=== PATIENT | female | born 1985 | race African-American/Black ===

== ENCOUNTER 2016-10-03 19:36 | Emergency (ER) | payer MEDICAID ==
[~2016-10-03] VITALS: Ht 162.6 cm; Wt 75.0 kg
[2016-10-04 02:16] LABS: CLARITY URINE CLEAR (CLEAR); COLOR URINE YELLOW (YELLOW); GLUCOSE URINE NEGATIVE (NEGATIVE); KETONES URINE NEGATIVE (NEGATIVE); LEUKOCYTE ESTERASE URINE NEGATIVE (NEGATIVE); NITRITE URINE NEGATIVE (NEGATIVE); OCCULT BLOOD URINE TRACE (NEGATIVE); PROTEIN URINE NEGATIVE (NEGATIVE); SPECIFIC GRAVITY URINE 1.015 (1.005-1.030); UROBILINOGEN URINE 0.2 E.U./dL (0.2-1.0)
[2016-10-04] MEDS ORDERED: PHENAZOPYRIDINE HCL 200MG TABLET PO ONE (03:15)
[2016-10-04 03:43] VITALS: BP 104/66
== END 2016-10-04 03:54 | disposition home or self-care (01) ==
LOC: ER 19:36
DX: N39.0 Urinary tract infection, site not specified (principal); F17.200 Nicotine dependence, unspecified, uncomplicated; Z98.890 Other specified postprocedural states
CPT/HCPCS: 81001; 81025; 99283

== ENCOUNTER 2016-11-22 11:09 | Emergency (ER) | payer MEDICAID, OTHER ==
[~2016-11-22] VITALS: Ht 162.6 cm; Wt 68.0 kg
[2016-11-22 14:53] VITALS: BP 123/78
[2016-11-22 15:05] LABS: CLARITY URINE CLEAR (CLEAR); COLOR URINE YELLOW (YELLOW); GLUCOSE URINE NEGATIVE (NEGATIVE); KETONES URINE 1+ (NEGATIVE); LEUKOCYTE ESTERASE URINE NEGATIVE (NEGATIVE); NITRITE URINE NEGATIVE (NEGATIVE); OCCULT BLOOD URINE 1+ (NEGATIVE); PH URINE 5.5 (4.5-8.0); PROTEIN URINE NEGATIVE (NEGATIVE); SPECIFIC GRAVITY URINE 1.017 (1.005-1.030); UROBILINOGEN URINE 0.2 E.U./dL (0.2-1.0)
== END 2016-11-22 16:05 | disposition left against medical advice (07) ==
LOC: ER 11:09
DX: R30.0 Dysuria (principal); R35.0 Frequency of micturition; Z98.890 Other specified postprocedural states
CPT/HCPCS: 81001; 81025; 99283

== ENCOUNTER 2017-03-14 08:18 | Emergency (ER) | payer MEDICAID, OTHER ==
[~2017-03-14] VITALS: Ht 162.6 cm; Wt 69.0 kg
[2017-03-14 08:28] VITALS: BP 114/72
[2017-03-14 09:48] LABS: CLARITY URINE CLEAR (CLEAR); COLOR URINE YELLOW (YELLOW); KETONES URINE NEGATIVE (NEGATIVE); LEUKOCYTE ESTERASE URINE NEGATIVE (NEGATIVE); NITRITE URINE NEGATIVE (NEGATIVE); OCCULT BLOOD URINE TRACE (NEGATIVE); PH URINE 6.5 (4.5-8.0); PROTEIN URINE NEGATIVE (NEGATIVE); SPECIFIC GRAVITY URINE 1.007 (1.005-1.030); UROBILINOGEN URINE 0.2 E.U./dL (0.2-1.0)
== END 2017-03-14 10:35 | disposition home or self-care (01) ==
LOC: ER 08:48
DX: N39.0 Urinary tract infection, site not specified (principal); F10.20 Alcohol dependence, uncomplicated
CPT/HCPCS: 81001; 81025; 87086; 99283; 99284

== ENCOUNTER 2018-01-23 09:19 | Emergency (ER) | payer MEDICAID ==
[~2018-01-23] VITALS: Ht 162.6 cm; Wt 70.0 kg
[2018-01-23 09:28] VITALS: BP 136/61
[2018-01-26 04:12] LABS: CHLAMYDIA TRACHOMATIS NAA Negative (Negative); NEISSERIA GONORRHOEAE NAA Negative (Negative)
== END 2018-01-23 12:40 | disposition home or self-care (01) ==
LOC: ER 09:59
DX: G89.29 Other chronic pain (principal); R10.32 Left lower quadrant pain; I10 Essential (primary) hypertension; F12.10 Cannabis abuse, uncomplicated; Z98.890 Other specified postprocedural states
CPT/HCPCS: 81025; 87210; 87491; 87591; 99283

== ENCOUNTER 2018-03-11 10:13 | Emergency (ER) | payer MEDICAID ==
[~2018-03-11] VITALS: Ht 162.6 cm; Wt 61.0 kg
[2018-03-11] MEDS ORDERED: KETOROLAC 30MG/ML VIAL IM ONE (11:45)
[2018-03-11 12:17] VITALS: BP 132/71
[2018-03-11 12:31] LABS: CLARITY URINE CLEAR (CLEAR); COLOR URINE YELLOW (YELLOW); KETONES URINE NEGATIVE (NEGATIVE); LEUKOCYTE ESTERASE URINE NEGATIVE (NEGATIVE); NITRITE URINE NEGATIVE (NEGATIVE); OCCULT BLOOD URINE NEGATIVE (NEGATIVE); PROTEIN URINE NEGATIVE (NEGATIVE); SPECIFIC GRAVITY URINE 1.014 (1.005-1.030); UROBILINOGEN URINE 0.2 E.U./dL (0.2-1.0)
== END 2018-03-11 13:54 | disposition home or self-care (01) ==
LOC: ER 10:13
DX: R10.2 Pelvic and perineal pain (principal); G89.29 Other chronic pain; I10 Essential (primary) hypertension; F12.10 Cannabis abuse, uncomplicated; Z98.890 Other specified postprocedural states
CPT/HCPCS: 81003; 81025; 87210; 87491; 87591; 96372; 99283; J1885

== ENCOUNTER 2022-07-12 20:57 | Emergency (ER) | payer MEDICAID, OTHER ==
[~2022-07-12] VITALS: Ht 162.6 cm; Wt 77.0 kg
[~2022-07-12 20:57] MED LIST: NITR100C MT
[2022-07-12 21:12] VITALS: BP 129/88
[2022-07-12] MEDS ORDERED: ACETAMINOPHEN 325MG TABLET PO STA (23:17)
[2022-07-12 23:53] LABS: CLARITY URINE CLEAR (CLEAR); COLOR URINE YELLOW (YELLOW); KETONES URINE TRACE (NEGATIVE); LEUKOCYTE ESTERASE URINE NEGATIVE (NEGATIVE); NITRITE URINE NEGATIVE (NEGATIVE); OCCULT BLOOD URINE NEGATIVE (NEGATIVE); PROTEIN URINE NEGATIVE (NEGATIVE); SPECIFIC GRAVITY URINE 1.014 (1.005-1.030)
[2022-07-13] MEDS ORDERED: NITR100C PO (00:28)
[2022-07-13] MEDS ORDERED: PYR200 MT (00:29)
== END 2022-07-13 01:25 | disposition home or self-care (01) ==
LOC: ER 20:57
DX: R30.0 Dysuria (principal); F12.90 Cannabis use, unspecified, uncomplicated; I10 Essential (primary) hypertension
CPT/HCPCS: 81003; 81025; 99283

== ENCOUNTER 2022-12-29 13:27 | Emergency (ER) | payer OTHER ==
[~2022-12-29] VITALS: Ht 162.6 cm; Wt 68.0 kg
[~2022-12-29 13:27] MED LIST changes: +NITR100C PO; +PYR200 MT
[2022-12-29 13:42] VITALS: O2SAT 100
[2022-12-29] MEDS ORDERED: DEXAMETHASONE 10 MG/ML VIAL PO ONE (13:45)
[2022-12-29] MEDS ORDERED: KETOROLAC 30MG/ML VIAL IM ONE (13:45)
[2022-12-29 15:30] LABS: MONOTEST NEGATIVE (NEGATIVE)
[2022-12-29] MEDS ORDERED: KETOROLAC 30MG/ML VIAL IM NR (16:45)
[2022-12-29] MEDS ORDERED: DEXAMETHASONE 10 MG/ML VIAL PO NR (16:45)
[2022-12-29] MEDS ORDERED: NAPR275T96 MT (16:57)
[2022-12-29 18:02] VITALS: BP 124/75; PULSE 77; RESP 18; TEMP 98.3
== END 2022-12-29 18:04 | disposition home or self-care (01) ==
LOC: ER 13:27
DX: K12.2 Cellulitis and abscess of mouth (principal); I10 Essential (primary) hypertension; F12.90 Cannabis use, unspecified, uncomplicated; Z98.890 Other specified postprocedural states
CPT/HCPCS: 81025; 86308; 87070; 87430; 96372; 99283; J1100; J1885